=== PATIENT | male | born 1975 | race Two or more races ===

== ENCOUNTER 2016-08-16 08:16 | Emergency (ER) | payer SELFPAY ==
--- NOTE | 2016-08-16 09:52 | ER Document Report ---
HPI - HPI Patient complains to provider of: neck pain Onset: Yesterday Onset/Duration: Gradual Quality of pain: Achy Pain Level: 3 Context: Patient states he was jumping rope yesterday and started to develop neck tenderness. Patient denies any fall or specific injury. Patient denies any fever or headache. Patient denies any IV drug use. Associated Symptoms: Other - Neck pain Exacerbated by: Movement Relieved by: Denies Similar symptoms previously: No Recently seen / treated by doctor: No - ROS ROS below otherwise negative: Yes Systems Reviewed and Negative: Yes All other systems reviewed and negative - CONSTITUTIONAL Constitutional: DENIES: Fever - NEURO Neurology: DENIES: Headache, Weakness - CARDIOVASCULAR Cardiovascular: DENIES: Chest pain - GASTROINTESTINAL Gastrointestinal: DENIES: Nausea, Patient vomiting - MUSCULOSKELETAL Musculoskeletal: REPORTS: Neck Pain - DERM Skin Color: Normal Skin Problems: None Past Medical History - General Information source: Patient - Social History Smoking Status: Unknown if Ever Smoked Chew tobacco use (# tins/day): No Frequency of alcohol use: None Drug Abuse: None Occupation: [employer] Lives with: Family Family History: Reviewed & Not Pertinent Patient has suicidal ideation: No Patient has homicidal ideation: No - Medical History Medical History: Negative Renal/ Medical History: Denies: Hx Peritoneal Dialysis Past Surgical History: Reports: Hx Appendectomy Vertical Provider Document - CONSTITUTIONAL Agree With Documented VS: Yes Exam Limitations: No Limitations General Appearance: WD/WN, No Apparent Distress - INFECTION CONTROL TRAVEL OUTSIDE OF THE [place] IN LAST 30 DAYS: No - HEENT HEENT: Atraumatic, Normocephalic - NECK Neck: Normal Inspection, Supple. negative: Lymphadenopathy-Left, Lymphadenopathy-Right Notes: No meningismus - RESPIRATORY Respiratory: Breath Sounds Normal, No Respiratory Distress O2 Sat by Pulse Oximetry: 99 - CARDIOVASCULAR Cardiovascular: Regular Rate, Regular Rhythm - BACK Back: Abnormal Inspection - Bilateral trapezius muscle tenderness with spasm. negative: CVA Tenderness-Right, CVA Tenderness-Left - MUSCULOSKELETAL/EXTREMETIES Musculoskeletal/Extremeties: [place] - NEURO Level of Consciousness: Awake, Alert, Appropriate Motor/Sensory: No Motor Deficit - DERM Integumentary: Warm, Dry, No Rash Course - Vital Signs Vital signs: Temp Pulse Resp BP Pulse Ox 97.4 F 74 20 129/80 H 99 08/16/16 08:21 08/16/16 08:21 08/16/16 08:21 08/16/16 08:21 08/16/16 08:21 Discharge - Discharge Clinical Impression: Trapezius muscle strain Qualifiers: Encounter type: initial encounter Laterality: unspecified laterality Qualified Code(s): S46.819A - Strain of other muscles, fascia and tendons at shoulder and upper arm level, unspecified arm, initial encounter Condition: Stable Disposition: HOME, SELF-CARE Instructions: Muscle Relaxers ([facility]), Muscle Strain ([facility]), Oral Narcotic Medication ([facility]), Warm Packs ([facility]) Additional Instructions: Return immediately for any new or worsening symptoms Followup with your primary care provider, call tomorrow to make a followup appointment Prescriptions: Cyclobenzaprine HCl [Flexeril 10 Mg Tablet] 10 mg PO TID #15 tablet Hydrocodone/Acetaminophen [[place] 5-325 Tablet] 1 each PO Q4 PRN #15 tablet PRN Reason: Forms: Return to Work Referrals: [facility] [Provider Group] - Follow up as needed
[2016-08-16 09:57] VITALS: BP 130/86
== END 2016-08-16 09:57 | disposition home or self-care (01) ==
LOC: ER 08:16
DX: S46.819A Strain of other muscles, fascia and tendons at shoulder and upper arm level, unspecified arm, initial encounter (principal); M54.2 Cervicalgia; X58.XXXA Exposure to other specified factors, initial encounter; Y93.56 Activity, jumping rope
CPT/HCPCS: 99283

== ENCOUNTER 2019-12-31 18:56 | Emergency (ER) | payer SELFPAY ==
--- NOTE | 2019-12-31 21:35 | ER Document Report ---
ED General - General Chief Complaint: Fever Stated Complaint: COUGH/CONGESTION/FEVER/DIARRHEA/MUSCLE PAIN Time Seen by Provider: 12/31/19 20:40 Mode of Arrival: Ambulatory Information source: Patient Notes: Patient is an otherwise healthy 44-year-old male presenting to the emergency department with multiple complaints today. Patient has had 1 week of fever, chills, cough, diarrhea, headache, body aches, lack of appetite and occasional shortness of breath. He states he was tested for COVID-19 1 week ago at [facility] in [place] but has not received his test results yet. He has no known exposure to COVID-19. He denies any medical problems and does not take any medications daily. TRAVEL OUTSIDE OF THE [place] IN LAST 30 DAYS: No - Related Data Allergies/Adverse Reactions: No Known Allergies Allergy (Verified 08/16/16 08:20) Home Medications: Ibuprofen Past Medical History - General Information source: Patient - Social History Smoking Status: Never Smoker Frequency of alcohol use: None Drug Abuse: None Family History: Reviewed & Not Pertinent - Medical History Medical History: Negative Renal/ Medical History: Denies: Hx Peritoneal Dialysis Past Surgical History: Reports: Hx Appendectomy - Immunizations Immunizations up to date: Yes Review of Systems - Review of Systems Constitutional: Chills, Fever EENT: No symptoms reported Cardiovascular: No symptoms reported Respiratory: Cough, Short of breath Gastrointestinal: Diarrhea Genitourinary: No symptoms reported Male Genitourinary: No symptoms reported Musculoskeletal: Other - ALL OVER BODY ACHES Skin: No symptoms reported Hematologic/Lymphatic: No symptoms reported Neurological/Psychological: No symptoms reported Physical Exam - Vital signs Vitals: Temp Pulse Resp BP Pulse Ox 100.2 F 107 H 20 137/87 H 94 12/31/19 19:58 12/31/19 19:58 12/31/19 19:58 12/31/19 19:58 12/31/19 19:58 - Notes Notes: PHYSICAL EXAMINATION: GENERAL: Well-appearing, well-nourished and in no acute distress. HEAD: Atraumatic, normocephalic. EYES: Pupils equal round and reactive to light, extraocular movements intact, sclera anicteric, conjunctiva are normal. ENT: Nares patent, oropharynx clear without exudates. Moist mucous membranes. NECK: Normal range of motion, supple without lymphadenopathy LUNGS: Breath sounds clear to auscultation bilaterally and equal. No wheezes rales or rhonchi. HEART: Regular rate and rhythm without murmurs ABDOMEN: Soft, nontender, nondistended abdomen. No guarding, no rebound. No masses appreciated. Musculoskeletal: Normal range of motion, no pitting or edema. No cyanosis. NEUROLOGICAL: Cranial nerves grossly intact. Normal speech, normal gait. Normal sensory, motor exams PSYCH: Normal mood, normal affect. SKIN: Warm, Dry, normal turgor, no rashes or lesions noted. Course - Re-evaluation Re-evalutation: 12/31/19 21:34 Patient appears well, nontoxic. Patient is mildly tachycardic with a heart rate of 107. He is febrile at 100.2. His initial room air O2 sat was 94%. The nursing staff has placed him on 2 L of nasal cannula oxygen and his oxygen saturations remain between 90-94. He has no respiratory history. He actually looks well and is not endorse any shortness of breath at this time. Will initiate his work-up. He is currently pending COVID-19 test that was done at another facility over a week ago. Patient has not had any success in getting his results we will repeat COVID-19 test tonight. All of patient's test results are reassuring. Patient did spike a fever near the time of discharge. Patient reports he is not feeling better after having the IV fluids. I believe this is likely because he has now spiked a fever of 102. Plan to reevaluate patient after administration of IV Toradol and oral acetaminophen. Patient was held in the emergency department for additional medications, now that patient's fever is under control patient now feels comfortable being discharged home. He states that he lives with his and daughter and feels comfortable with them caring for him. Oxygen saturations at time of discharge are 95% on room air. Patient is not tachypneic, hypoxic or tachycardic. He is concerned about going home but states that he will return if he has worsening respiratory status. - Vital Signs Vital signs: Temp Pulse Resp BP Pulse Ox 99.1 F 92 18 103/66 91 L 01/01/20 04:42 01/01/20 04:42 01/01/20 04:42 01/01/20 04:42 07/15/20 04:42 - Laboratory Result Diagrams: 12/31/19 22:14 12/31/19 22:14 Laboratory results interpreted by me: 12/31/19 12/31/19 12/31/19 22:14 22:14 22:14 RBC 5.97 H Hgb 17.3 H RDW 14.3 H Lymph % (Auto) 11.8 L Seg Neutrophils % 82.6 H Sodium 134.9 L Chloride 96 L Glucose 165 H AST 92 H ALT 70 H Urine Protein >=500 H Urine Glucose (UA) 50 H Urine Ketones 20 H Urine Blood SMALL H Urine Urobilinogen 2.0 H Discharge - Discharge Clinical Impression: Suspected COVID-19 virus infection Fever Qualifiers: Fever type: unspecified Qualified Code(s): R50.9 - Fever, unspecified Condition: Stable Disposition: HOME, SELF-CARE Instructions: COVID-19 Guidance for Persons Under Investigation Additional Instructions: As discussed your COVID-19 testing is pending. The rest of your work-up today was reassuring. Please take Tylenol or ibuprofen for fever or body aches. Drink plenty fluids. Rest. Self quarantine until you have received the results of your COVID-19 testing. Please return to the emergency department with worsening symptoms or severe shortness of breath. Forms: Return to Work
--- NOTE | 2019-12-31 22:18 | RADIOLOGY REPORT (SQ) ---
EXAM DESCRIPTION: X-RAY CHEST- One View CLINICAL HISTORY: Fever, cough, hypoxia COMPARISON: None available TECHNIQUE: Single view of the chest. FINDINGS: There patchy opacities overlying the left midlung zone, and to a lesser extent the bilateral lower lung zones. The pulmonary vascularity is normal. The cardiomediastinal silhouette is normal in size. No suspicious lytic or blastic osseous lesions are identified. IMPRESSION: Multifocal patchy opacities are nonspecific in nature. Findings are nonspecific but may represent multifocal infectious process. Clinical correlation is advised with attention on follow-up.
[2019-12-31] MEDS: NORMAL SALINE 1000 ML 1,000 ML IV PRN (22:21)
[2019-12-31 22:33] LABS: ABSOLUTE LYMPHOCYTES (AUTO) 0.9 10^3/uL (0.5-4.7); ABSOLUTE MONOCYTES (AUTO) 0.4 10^3/uL (0.1-1.4); ABSOLUTE NEUT (AUTO) 6.4 10^3/uL (1.7-8.2); BASOPHILS % (AUTO) 0.2 % (0-2); HEMATOCRIT 50.6 % (37.9-51.0); HEMOGLOBIN 17.3 g/dL (13.5-17.0); LYMPHOCYTES % (AUTO) 11.8 % (13-45); MEAN CORPUSCULAR HGB CONC 34.2 g/dL (32.0-36.0); MEAN CORPUSCULAR VOLUME 85 fl (80-97); MONOCYTES % (AUTO) 5.4 % (3-13); PLATELET COUNT 267 10^3/uL (150-450); RED BLOOD COUNT 5.97 10^6/uL (4.35-5.55); RED CELL DISTRIBUTION WIDTH 14.3 % (11.5-14.0); SEGMENTED NEUTROPHILS % (AUTO) 82.6 % (42-78); TOTAL CELLS COUNTED % (AUTO) 100 %; WHITE BLOOD COUNT 7.7 10^3/uL (4.0-10.5)
[2019-12-31 22:39] LABS: APPEARANCE,URINE CLEAR; BILIRUBIN,URINE NEGATIVE (NEGATIVE); COLOR,URINE AMBER; GLUCOSE, URINE 50 mg/dL (NEGATIVE); KETONES,URINE 20 mg/dL (NEGATIVE); PROTEIN,URINE >=500 mg/dL (NEGATIVE); URINE SPECIFIC GRAVITY 1.024
[2019-12-31 22:50] LABS: ALBUMIN 4.3 g/dL (3.5-5.0); ALKALINE PHOSPHATASE 108 U/L (38-126); ANION GAP 9 (5-19); ASPARTATE AMINO TRANSFERASE 92 U/L (17-59); BILIRUBIN,DIRECT 0.2 mg/dL (0.0-0.4); BILIRUBIN,TOTAL 0.6 mg/dL (0.2-1.3); BLOOD UREA NITROGEN 10 mg/dL (7-20); CALCIUM 9.1 mg/dL (8.4-10.2); CARBON DIOXIDE 30 mmol/L (22-30); CHLORIDE 96 mmol/L (98-107); GLUCOSE 165 mg/dL (75-110); POTASSIUM 4.5 mmol/L (3.6-5.0); TOTAL PROTEIN 7.4 g/dL (6.3-8.2)
[2020-01-01] MEDS ORDERED: KETOROLAC TROMETHAMINE INJ/PF 30 MG/1 ML SDV IV ONE (02:20)
[2020-01-01] MEDS ORDERED: ACETAMINOPHEN 325 MG TABLET PO ONE (02:20)
[2020-01-01] MEDS: NORMAL SALINE 1000 ML 1,000 ML IV PRN (03:37)
[2020-01-01 04:43] VITALS: BP 103/66
== END 2020-01-01 05:53 | disposition home or self-care (01) ==
LOC: ER 18:56
DX: R50.9 Fever, unspecified (principal); R05 Cough; R19.7 Diarrhea, unspecified; R51 Headache; R63.0 Anorexia; R06.02 Shortness of breath; M79.10 Myalgia, unspecified site; Z79.1 Long term (current) use of non-steroidal anti-inflammatories (NSAID); Z20.828 Contact with and (suspected) exposure to other viral communicable diseases
CPT/HCPCS: 99283; 96361; 96374; 36415; 85025; 87635; 80053; 81001; 71045; J1885; J7030 ×2; C9803

== ENCOUNTER 2020-01-01 15:53 | Inpatient (IN) | payer SELFPAY ==
[2020-01-01 17:35] LABS: ABSOLUTE LYMPHOCYTES (AUTO) 0.5 10^3/uL (0.5-4.7); ABSOLUTE MONOCYTES (AUTO) 0.3 10^3/uL (0.1-1.4); ABSOLUTE NEUT (AUTO) 6.9 10^3/uL (1.7-8.2); BASOPHILS % (AUTO) 0.1 % (0-2); HEMATOCRIT 44.8 % (37.9-51.0); HEMOGLOBIN 15.4 g/dL (13.5-17.0); LYMPHOCYTES % (AUTO) 6.9 % (13-45); MEAN CORPUSCULAR HEMOGLOBIN 29.3 pg (27.0-33.4); MEAN CORPUSCULAR HGB CONC 34.5 g/dL (32.0-36.0); MEAN CORPUSCULAR VOLUME 85 fl (80-97); MONOCYTES % (AUTO) 4.3 % (3-13); PLATELET COUNT 275 10^3/uL (150-450); RED BLOOD COUNT 5.27 10^6/uL (4.35-5.55); RED CELL DISTRIBUTION WIDTH 14.2 % (11.5-14.0); SEGMENTED NEUTROPHILS % (AUTO) 88.7 % (42-78); TOTAL CELLS COUNTED % (AUTO) 100 %; WHITE BLOOD COUNT 7.8 10^3/uL (4.0-10.5)
[2020-01-01 17:40] LABS: VENOUS BLOOD BASE EXCESS 3.5 mmol/L; VENOUS BLOOD HCO3 27.3 mmol/L (20-32); VENOUS BLOOD PCO2 38.8 mmHg (35-63); VENOUS BLOOD PH 7.47 (7.30-7.42)
[2020-01-01] MEDS ORDERED: ACETAMINOPHEN 325 MG TABLET PO ONE (17:45)
[2020-01-01 17:48] LABS: ALBUMIN 3.5 g/dL (3.5-5.0); ALKALINE PHOSPHATASE 96 U/L (38-126); ANION GAP 7 (5-19); ASPARTATE AMINO TRANSFERASE 98 U/L (17-59); BILIRUBIN,DIRECT 0.2 mg/dL (0.0-0.4); BILIRUBIN,TOTAL 0.5 mg/dL (0.2-1.3); BLOOD UREA NITROGEN 7 mg/dL (7-20); CARBON DIOXIDE 26 mmol/L (22-30); CHLORIDE 98 mmol/L (98-107); GLUCOSE 217 mg/dL (75-110); TOTAL PROTEIN 6.2 g/dL (6.3-8.2)
--- NOTE | 2020-01-01 17:55 | RADIOLOGY REPORT (SQ) ---
EXAM DESCRIPTION: CHEST SINGLE VIEW IMAGES COMPLETED DATE/TIME: 01/01/2020 5:42 pm REASON FOR STUDY: bed 6 covid + COMPARISON: 12/31/2019 EXAM PARAMETERS: NUMBER OF VIEWS: One view. TECHNIQUE: Single frontal radiographic view of the chest acquired. RADIATION DOSE: NA LIMITATIONS: None. FINDINGS: LUNGS AND PLEURA: Increased opacification in the left lung generally. Increased right per ihilar opacification. MEDIASTINUM AND HILAR STRUCTURES: No masses. Contour normal. HEART AND VASCULAR STRUCTURES: Heart normal in size. Normal vasculature. BONES: No acute findings. HARDWARE: None in the chest. OTHER: No other significant finding. IMPRESSION: Increasing pneumonia is consistent with the the stated history. TECHNICAL DOCUMENTATION: JOB ID: [id number] 2010 [employer]- All Rights Reserved Reading location - IP/workstation name: [email or web address]
--- NOTE | 2020-01-01 17:58 | ER Document Report ---
ED General - General Chief Complaint: Shortness Of Breath Stated Complaint: SHORT OF BREATH,COUGH Time Seen by Provider: 01/01/20 17:44 Mode of Arrival: Ambulatory Information source: Patient TRAVEL OUTSIDE OF THE [place] IN LAST 30 DAYS: No - HPI Notes: Patient presents complaint of shortness of breath. He states that he found out that his COVID test was positive this morning. He states his shortness of breath is worse with exertion better with rest. It is constant. It is moderate to severe. It obviously does not radiate. He is also had some fevers body aches and chills. - Related Data Allergies/Adverse Reactions: No Known Allergies Allergy (Verified 01/01/20 17:27) Past Medical History - General Information source: Patient - Social History Smoking Status: Former Smoker Frequency of alcohol use: None Drug Abuse: None Family History: Reviewed & Not Pertinent Patient has homicidal ideation: No Renal/ Medical History: Denies: Hx Peritoneal Dialysis Past Surgical History: Reports: Hx Appendectomy - Immunizations Immunizations up to date: Yes Review of Systems - Review of Systems Constitutional: Chills, Fever, Malaise Cardiovascular: Chest pain. denies: Palpitations Respiratory: Cough, Short of breath -: Yes All other systems reviewed and negative Physical Exam - Vital signs Vitals: Temp Pulse Resp BP Pulse Ox 101.6 F H 107 H 20 123/78 86 L 01/01/20 16:02 01/01/20 16:02 01/01/20 16:02 01/01/20 16:02 01/01/20 16:02 Interpretation: Tachycardic, Tachypneic, Febrile - General General appearance: Appears well, Alert - HEENT Head: Normocephalic, Atraumatic Eyes: Normal - Respiratory Respiratory status: No respiratory distress Breath sounds: Normal - Cardiovascular Rhythm: Regular - Abdominal Inspection: Normal Distension: No distension - Back Back: Normal - Extremities General upper extremity: Normal inspection, Nontender, Normal color, Normal ROM General lower extremity: Normal inspection, Nontender, Normal color, Normal ROM. No: Moses's sign - Neurological Neuro grossly intact: Yes Cognition: Normal Orientation: AAOx4 [place] Coma Scale Eye Opening: Spontaneous [place] Coma Scale Verbal: Oriented [place] Coma Scale Motor: Obeys Commands [place] Coma Scale Total: 15 Speech: Normal - Psychological Associated symptoms: Normal affect, Normal mood - Skin Skin Moisture: Dry Skin Color: Normal Course - Re-evaluation Re-evalutation: 01/01/20 17:56 Patient has a known positive COVID test. He is febrile. He has hypoxic. His x-ray shows changes consistent with viral pneumonia. Patient is currently on 6 L nasal cannula. He will be admitted to the hospital for further care. - Vital Signs Vital signs: Temp Pulse Resp BP Pulse Ox 103.2 F H 100 25 H 140/78 H 92 01/01/20 17:30 01/01/20 17:30 01/01/20 17:30 01/01/20 17:30 01/01/20 17:30 - Laboratory Result Diagrams: 01/01/20 17:00 01/01/20 17:00 Laboratory results interpreted by me: 01/01/20 01/01/20 17:00 17:00 RDW 14.2 H Lymph % (Auto) 6.9 L Seg Neutrophils % 88.7 H VBG pH 7.47 H - Diagnostic Test Radiology reviewed: Image reviewed, Reports reviewed Critical Care Note - Critical Care Note Total time excluding time spent on procedures (mins): 40 Comments: Approximately 40 minutes of critical care time were spent on this patient. This included multiple reassessments. It included reviewing laboratories and images. It included talking to multiple consultants. Discharge - Discharge Clinical Impression: Pneumonia due to COVID-19 virus Condition: Serious Disposition: ADMITTED INPATIENT Admitting Provider: Vic (Hospitalist) Unit Admitted: [facility]
[2020-01-01] MEDS ORDERED: DEXTROSE 5%-NORMAL SALINE 1,000 ML IV PRN (18:14)
[2020-01-01] MEDS ORDERED: ACETAMINOPHEN 325 MG TABLET PO PRN (18:14)
[2020-01-01] MEDS ORDERED: MAG HYDROX/AL HYDROX/SIMETH SUSP 30 ML UDCUP PO PRN (18:14)
[2020-01-01] MEDS ORDERED: ONDANSETRON HCL INJ/PF 4 MG/2 ML SDV IV PRN (18:14)
[2020-01-01] MEDS ORDERED: GUAIFENESIN SYRP 200 MG/10 ML UDC PO PRN (18:20)
[2020-01-01] MEDS ORDERED: AZITHROMYCIN INJ 500 MG VIAL IV ONE (18:27)
[2020-01-01] MEDS ORDERED: NORMAL SALINE 1000 ML 1,000 ML IV PRN (18:28)
[2020-01-01] MEDS ORDERED: KETOROLAC TROMETHAMINE INJ/PF 30 MG/1 ML SDV IV PRN (18:31)
[2020-01-01] MEDS ORDERED: NORMAL SALINE 1000 ML 1,000 ML with POTASSIUM CHLORIDE 20 MEQ IV PRN ×2 (18:33)
--- NOTE | 2020-01-01 18:46 | PDOC H&P ---
History of Present Illness Patient complains of: Cough, shortness of breath History of Present Illness: CARINA MAJOR is a 44 year old male with no significant past medical history who presents to the hospital evaluation of nonproductive cough and shortness of breath. Patient states that his symptoms have persisted for the past several days now. His worsening dyspnea today. Also suspecting high fevers at home. Admits to chills. States that he has been outpatient COVID-19 test at [place] which was came back positive. He was also seen in tested in our ER yesterday. Result pending. In the ER yesterday patient was not hypoxic. However today patient was reported to have desatted to 80% on room air in the ER. Currently on nasal cannula. Admits to diarrhea. Admits to loss of appetite as well. Denies any vomiting. Past Medical History Medical History: None Infectious History Note: Appendicitis Past Surgical History Past Surgical History: Reports: Appendectomy Social History Information Source: Patient Lives with: Spouse/Significant other Smoking Status: Never Smoker Frequency of Alcohol Use: None Hx Recreational Drug Use: No Hx Prescription Drug Abuse: No - Advance Directive Resuscitation Status: Full Code Family History Family History: DM, Hypertension Parental Family History Reviewed: Yes Children Family History Reviewed: NA Sibling(s) Family History Reviewed.: Yes Medication/Allergy Home Medications: Cyclobenzaprine HCl [Flexeril 10 Mg Tablet] 10 mg PO TID #15 tablet 08/16/16 Hydrocodone/Acetaminophen [[place] 5-325 Tablet] 1 each PO Q4 PRN #15 tablet 08/16/16 Allergies/Adverse Reactions: No Known Allergies Allergy (Verified 01/01/20 17:27) Review of Systems Constitutional: PRESENT: chills, fatigue, fever(s) Eyes: ABSENT: visual disturbances Ears: ABSENT: hearing changes Nose, Mouth, and Throat: ABSENT: headache(s) Cardiovascular: ABSENT: chest pain, edema, orthropnea Respiratory: PRESENT: cough, dyspnea. ABSENT: sputum Gastrointestinal: PRESENT: diarrhea, nausea. ABSENT: abdominal pain, vomiting Genitourinary: ABSENT: dysuria Musculoskeletal: PRESENT: other - Generalized body aches Integumentary: PRESENT: diaphoresis Neurological: PRESENT: dizziness. ABSENT: confusion Endocrine: ABSENT: polyuria Hematologic/Lymphatic: ABSENT: easy bleeding Physical Exam Vital Signs: Temp Pulse Resp BP Pulse Ox 103.2 F H 100 26 H 128/75 H 93 01/01/20 17:30 01/01/20 17:30 01/01/20 18:01 01/01/20 18:01 01/01/20 18:01 Intake & Output 12/31/19 01/01/20 01/02/20 06:59 06:59 06:59 Weight 101 kg General appearance: PRESENT: no acute distress, cooperative Mouth exam: PRESENT: neck supple Neck exam: ABSENT: JVD Respiratory exam: PRESENT: crackles - Bilateral lung wright, symmetrical, unlabored. ABSENT: accessory muscle use, retraction, tachypnea, wheezes Cardiovascular exam: PRESENT: RRR, +S1, +S2. ABSENT: tachycardia GI/Abdominal exam: PRESENT: soft. ABSENT: distended, firm, guarding, rebound, rigid, tenderness Extremities exam: ABSENT: pedal edema Neurological exam: PRESENT: alert, awake, oriented to person, oriented to place, oriented to time, oriented to situation Psychiatric exam: ABSENT: agitated, anxious Focused psych exam: ABSENT: pressured speech Skin exam: ABSENT: jaundice Results Laboratory Results: 01/01/20 17:00 01/01/20 17:00 01/01/20 01/01/20 01/01/20 17:00 17:00 17:00 WBC 7.8 RBC 5.27 Hgb 15.4 Hct 44.8 MCV 85 MCH 29.3 MCHC 34.5 RDW 14.2 H Plt Count 275 Seg Neutrophils % 88.7 H VBG pH VBG pCO2 VBG HCO3 VBG Base Excess Sodium 131.0 L Potassium 4.0 Chloride 98 Carbon Dioxide 26 Anion Gap 7 BUN 7 Creatinine 0.76 Est GFR ( Amer) > 60 Glucose 217 H Lactic Acid 1.3 Calcium 8.0 L Total Bilirubin 0.5 AST 98 H Alkaline Phosphatase 96 Total Protein 6.2 L Albumin 3.5 01/01/20 17:00 WBC RBC Hgb Hct MCV MCH MCHC RDW Plt Count Seg Neutrophils % VBG pH 7.47 H VBG pCO2 38.8 VBG HCO3 27.3 VBG Base Excess 3.5 Sodium Potassium Chloride Carbon Dioxide Anion Gap BUN Creatinine Est GFR ( Amer) Glucose Lactic Acid Calcium Total Bilirubin AST Alkaline Phosphatase Total Protein Albumin Impressions: Chest X-Ray 01/01/20 00:00 IMPRESSION: Increasing pneumonia is consistent with the the stated history. Assessment and Plan - Diagnosis (1) Pneumonia due to COVID-19 virus Is this a current diagnosis for this admission?: Yes Plan: Chest x-ray shows bilateral pulmonary infiltrates consistent with typical COVID pneumonia. Patient also reports testing positive as outpatient which he just got the results of today. He was tested in the ER as well yesterday and the results are pending. We will start patient on vitamin C, vitamin D, zinc supplements. Guaifenesin, albuterol inhaler. Start azithromycin. Isolation in the COVID unit. Blood cultures were obtained. Antiemetics provided. (2) Acute hypoxemic respiratory failure due to COVID-19 Is this a current diagnosis for this admission?: Yes Plan: Patient desatted to 80% on room air. Currently requiring nasal cannula. Goal SPO2 of 90 to 94%. Will increase nasal cannula as needed to achieve goal. If nasal cannula is insufficient, will place patient on Ventimask. We will start on IV dexamethasone now. Monitor on continuous pulse oximetry. IMCU level care. (3) Diarrhea Qualifiers: Diarrhea type: infectious Qualified Code(s): A09 - Infectious gastroenteritis and colitis, unspecified Is this a current diagnosis for this admission?: Yes Plan: Likely secondary to viral gastroenteritis from COVID-19. Will monitor closely. Did have about 5 bouts of diarrhea. Experiencing some dizziness likely due to dehydration. Will provide with IV fluids. If frequent diarrhea persists, will rule out C. difficile infection and start Imodium. Antiemetics provided for nausea. (4) Hyponatremia Is this a current diagnosis for this admission?: Yes Plan: Likely secondary to hypovolemia from dehydration from diarrhea. Administer normal saline. Check BMP in the morning. (5) Hyperglycemia Is this a current diagnosis for this admission?: Yes Plan: Blood sugars in the 200s. Denies history of diabetes. Will check hemoglobin A1c in the morning. (6) Transaminitis Is this a current diagnosis for this admission?: Yes Plan: Likely secondary to prior infection. Will monitor CMP. - Time Time Spent with patient: 25-34 minutes
[2020-01-01] MEDS ORDERED: DEXAMETHASONE SOD PHOSPHATE INJ 4 MG/1 ML VIAL IV ONE (19:30)
[2020-01-01] MEDS ORDERED: AZITHROMYCIN 500 MG in DEXTROSE 5%-WATER 250 ML IV ONE (19:30)
[2020-01-01] MEDS: ASCORBIC ACID 500 MG TABLET PO SCH (19:37)
[2020-01-01] MEDS: ENOXAPARIN SODIUM INJ 40 MG/0.4 ML DISP.SYRIN SUBCUT SCH (22:46)
[2020-01-01] MEDS: GUAIFENESIN 600 MG TABLET.SA PO SCH (22:46)
[2020-01-02] MEDS ORDERED: ALBUTEROL SULFATE HFA (90 MCG/PUFF) 8 GM MDI IH SCH
[2020-01-02] MEDS: ALBUTEROL SULFATE HFA (90 MCG/PUFF) 200 PUFF/8.5 GM MDI IH SCH ×4 (01:07→18:22)
[2020-01-02] MEDS: POTASSI CL 20 MEQ/NS 1L 1000 ML IV PRN (01:50)
[2020-01-02] MEDS: DEXAMETHASONE SOD PHOSPHATE INJ 4 MG/1 ML VIAL IV SCH ×3 (01:51→23:08)
[2020-01-02 05:11] LABS: ABSOLUTE LYMPHOCYTES (AUTO) 0.7 10^3/uL (0.5-4.7); ABSOLUTE MONOCYTES (AUTO) 0.3 10^3/uL (0.1-1.4); ABSOLUTE NEUT (AUTO) 8.7 10^3/uL (1.7-8.2); BASOPHILS % (AUTO) 0.1 % (0-2); HEMATOCRIT 45.7 % (37.9-51.0); HEMOGLOBIN 15.8 g/dL (13.5-17.0); LYMPHOCYTES % (AUTO) 7.3 % (13-45); MEAN CORPUSCULAR HEMOGLOBIN 29.3 pg (27.0-33.4); MEAN CORPUSCULAR HGB CONC 34.5 g/dL (32.0-36.0); MEAN CORPUSCULAR VOLUME 85 fl (80-97); MONOCYTES % (AUTO) 3.3 % (3-13); PLATELET COUNT 288 10^3/uL (150-450); RED BLOOD COUNT 5.37 10^6/uL (4.35-5.55); RED CELL DISTRIBUTION WIDTH 14.6 % (11.5-14.0); SEGMENTED NEUTROPHILS % (AUTO) 89.3 % (42-78); TOTAL CELLS COUNTED % (AUTO) 100 %; WHITE BLOOD COUNT 9.8 10^3/uL (4.0-10.5)
[2020-01-02 05:30] LABS: ALBUMIN 3.5 g/dL (3.5-5.0); ALKALINE PHOSPHATASE 100 U/L (38-126); ANION GAP 8 (5-19); ASPARTATE AMINO TRANSFERASE 99 U/L (17-59); BILIRUBIN,DIRECT 0.1 mg/dL (0.0-0.4); BILIRUBIN,TOTAL 0.6 mg/dL (0.2-1.3); BLOOD UREA NITROGEN 8 mg/dL (7-20); CALCIUM 8.2 mg/dL (8.4-10.2); CARBON DIOXIDE 27 mmol/L (22-30); CHLORIDE 100 mmol/L (98-107); GLUCOSE 209 mg/dL (75-110); PHOSPHORUS 2.3 mg/dL (2.5-4.5); POTASSIUM 4.4 mmol/L (3.6-5.0); TOTAL PROTEIN 6.6 g/dL (6.3-8.2)
[2020-01-02 05:51] LABS: C-REACTIVE PROTEIN 262.7 mg/L (<10.0)
[2020-01-02] MEDS ORDERED: DEXTROSE 50%-WATER 25 GM/50 ML DISP.SYRIN IV PRN ×2 (07:34)
[2020-01-02] MEDS ORDERED: DEXTROSE 40% GEL 15 GM TUBE PO PRN ×2 (07:34)
[2020-01-02] MEDS ORDERED: GLUCAGON,HUMAN RECOMB 1 MG INJ IM PRN (07:34)
[2020-01-02] MEDS ORDERED: ENOXAPARIN SODIUM INJ 40 MG/0.4 ML DISP.SYRIN SUBCUT SCH (10:00)
[2020-01-02] MEDS: METFORMIN HCL 500 MG TABLET PO SCH ×2 (15:15→17:54)
[2020-01-02] MEDS: CHOLECALCIFEROL (D3) 1,000 UNIT (25 MCG) TABLET PO SCH (15:19)
[2020-01-02] MEDS: ZINC SULFATE 220 MG CAPSULE PO SCH (15:20)
[2020-01-02] MEDS: GUAIFENESIN 600 MG TABLET.SA PO SCH ×2 (15:22→23:08)
[2020-01-02] MEDS: ASCORBIC ACID 500 MG TABLET PO SCH ×2 (15:22→23:09)
[2020-01-02] MEDS: ENOXAPARIN SODIUM INJ 40 MG/0.4 ML DISP.SYRIN SUBCUT SCH ×2 (15:26→23:08)
[2020-01-02] MEDS: INSULIN LISPRO 100 UNIT/ML 3 ML VIAL SUBCUT SCH ×4 (15:31→23:15)
--- NOTE | 2020-01-02 17:37 | PDOC PROGRESS REPORT ---
Subjective Progress Note for:: 01/02/20 Subjective:: Patient became more short of breath today. When he ambulated he felt very heavy. He dropped independently on nasal cannula. Had to be placed on a simple facemask earlier today. Escalated therapy to high flow nasal cannula. Patient at the time of my encounter states that he does not feel as dyspneic but feels more dyspneic earlier. He denies any chest pain. Still having diarrhea. Not eating much of anything. Has loss of appetite. Reason For Visit: COVID PNA,HYPOXIA Physical Exam Vital Signs: Temp Pulse Resp BP Pulse Ox 101.5 F H 111 H 26 H 109/70 94 01/02/20 11:31 01/02/20 11:31 01/02/20 14:08 01/02/20 11:31 01/02/20 14:08 Pulse Oximeter Continuous Start: 01/01/20 18:33 Freq: RTQ4 Status: Active Protocol: Document 01/02/20 16:00 [facility] (Rec: 01/02/20 16:59 [facility] [id number]) Pulse Oximetry Assessment Oxygen Flow Rate (L/min) 40 Oxygen Delivery Method High Flow Nasal Cannula Fraction of Inspired Oxygen (FIO2) 90 Equipment Usage Equipment in Use Continuous SpO2 Machine # 2 Intake & Output 01/01/20 01/02/20 01/03/20 06:59 06:59 06:59 Intake Total 450 150 Output Total 675 250 Balance -225 -100 Weight 101 kg 101 kg General appearance: PRESENT: no acute distress, cooperative Neck exam: ABSENT: JVD Respiratory exam: PRESENT: crackles, symmetrical, unlabored. ABSENT: tachypnea, wheezes Cardiovascular exam: PRESENT: RRR, +S1, +S2. ABSENT: tachycardia GI/Abdominal exam: PRESENT: soft. ABSENT: rebound, rigid, tenderness Neurological exam: PRESENT: alert, awake, oriented to person, oriented to place, oriented to time, oriented to situation Results Laboratory Results: 01/02/20 04:35 01/02/20 04:35 01/01/20 01/01/20 01/01/20 17:00 17:00 17:00 WBC 7.8 RBC 5.27 Hgb 15.4 Hct 44.8 MCV 85 MCH 29.3 MCHC 34.5 RDW 14.2 H Plt Count 275 Seg Neutrophils % 88.7 H VBG pH VBG pCO2 VBG HCO3 VBG Base Excess Sodium 131.0 L Potassium 4.0 Chloride 98 Carbon Dioxide 26 Anion Gap 7 BUN 7 Creatinine 0.76 Est GFR ( Amer) > 60 Glucose 217 H Lactic Acid 1.3 Calcium 8.0 L Phosphorus Magnesium Total Bilirubin 0.5 AST 98 H Alkaline Phosphatase 96 C-Reactive Protein Total Protein 6.2 L Albumin 3.5 01/01/20 01/02/20 01/02/20 17:00 04:35 04:35 WBC 9.8 RBC 5.37 Hgb 15.8 Hct 45.7 MCV 85 MCH 29.3 MCHC 34.5 RDW 14.6 H Plt Count 288 Seg Neutrophils % 89.3 H VBG pH 7.47 H VBG pCO2 38.8 VBG HCO3 27.3 VBG Base Excess 3.5 Sodium 135.3 L Potassium 4.4 Chloride 100 Carbon Dioxide 27 Anion Gap 8 BUN 8 Creatinine 0.77 Est GFR ( Amer) > 60 Glucose 209 H Lactic Acid Calcium 8.2 L Phosphorus 2.3 L Magnesium 2.0 Total Bilirubin 0.6 AST 99 H Alkaline Phosphatase 100 C-Reactive Protein 262.7 H Total Protein 6.6 Albumin 3.5 Impressions: Chest X-Ray 01/01/20 00:00 IMPRESSION: Increasing pneumonia is consistent with the the stated history. Assessment and Plan - Diagnosis (1) Pneumonia due to COVID-19 virus Is this a current diagnosis for this admission?: Yes Plan: Chest x-ray shows bilateral pulmonary infiltrates consistent with typical COVID pneumonia. COVID-19 test from 12/31/2019 is positive. Continue vitamin C, vitamin D, zinc supplements. Guaifenesin, albuterol inhaler. Continue azithromycin day 2. Isolation in the COVID unit. Blood cultures were obtained. Antiemetics provided. I have organized for patient to get Remdesivir as patient meets qualification given his Severe COVID-19 infection. Pharmacy coordinating it with [facility] and hopefully will be delivered tomorrow. (2) Acute hypoxemic respiratory failure due to COVID-19 Is this a current diagnosis for this admission?: Yes Plan: Patient's hypoxia significantly progressed. At this point he is requiring high flow nasal cannula to keep his sats over 90%. We will wean FiO2 as tolerated. We will also have patient self prone. Check ABG in the morning. Continue dexamethasone IV. Hopefully, Remdesivir can be started tomorrow. (3) Diarrhea Qualifiers: Diarrhea type: infectious Qualified Code(s): A09 - Infectious gastroenteritis and colitis, unspecified Is this a current diagnosis for this admission?: Yes Plan: Likely secondary to viral gastroenteritis from COVID-19. Will monitor closely. Still having several bouts of diarrhea. Will check C. difficile as well and if negative will start on Imodium. IV fluid hydration to avoid dehydration. (4) New onset type 2 diabetes mellitus Is this a current diagnosis for this admission?: Yes Plan: Random blood sugar over 200 and hemoglobin A1c of 7.1. I will start patient on metformin. Accu-Cheks and sliding scale. Diabetes education. Dietitian consulted. (5) Hyponatremia Is this a current diagnosis for this admission?: Yes Plan: Likely secondary to hypovolemia from dehydration from diarrhea. Improved on BMP following IV fluids administration. (6) Transaminitis Is this a current diagnosis for this admission?: Yes Plan: Likely secondary to prior infection. Will monitor CMP. (7) DVT prophylaxis Is this a current diagnosis for this admission?: Yes Plan: Given high risk of VTE with COVID patient's on regular prophylactic dose, I have placed patient on half therapeutic dose of Lovenox. - Time Time Spent with patient: 15-24 minutes
[2020-01-02] MEDS ORDERED: AZITHROMYCIN INJ 500 MG VIAL IV SCH (18:00)
[2020-01-02] MEDS ORDERED: AZITHROMYCIN 250 MG in DEXTROSE 5%-WATER 250 ML IV SCH (18:00)
[2020-01-02] MEDS ORDERED: REMDESIVIR (EUA) 200 MG in NORMAL SALINE 250 ML IV ONE (22:00)
[2020-01-03] MEDS: AZITHROMYCIN 250 MG in DEXTROSE 5%-WATER 250 ML IV SCH (01:46)
[2020-01-03] MEDS: ALBUTEROL SULFATE HFA (90 MCG/PUFF) 200 PUFF/8.5 GM MDI IH SCH ×4 (01:47→17:20)
[2020-01-03 05:41] LABS: HEMATOCRIT 44.3 % (37.9-51.0); HEMOGLOBIN 15.1 g/dL (13.5-17.0); MEAN CORPUSCULAR VOLUME 85 fl (80-97); PLATELET COUNT 359 10^3/uL (150-450); RED CELL DISTRIBUTION WIDTH 14.8 % (11.5-14.0)
[2020-01-03] MEDS: DEXAMETHASONE SOD PHOSPHATE INJ 4 MG/1 ML VIAL IV SCH ×3 (05:43→21:45)
[2020-01-03 06:09] LABS: ABSOLUTE LYMPHOCYTES# (MANUAL) 0.3 10^3/uL (0.5-4.7); ABSOLUTE MONOCYTES # (MANUAL) 0.6 10^3/uL (0.1-1.4); ANISOCYTOSIS SLIGHT; BAND NEUTROPHILS % (MANUAL) 1 % (3-5); BASOPHILS % (MANUAL) 0 % (0-2); EOSINOPHILS % (MANUAL) 0 % (0-6); LYMPHOCYTES % (MANUAL) 2 % (13-45); MONOCYTES % (MANUAL) 4 % (3-13); PLATELET COMMENT ADEQUATE; SEGMENTED NEUTROPHILS % (MAN) 93 % (42-78); TOTAL CELLS COUNTED 100; TOXIC GRANULATION 1+; TOXIC VACUOLATION PRESENT
[2020-01-03 06:38] LABS: ALBUMIN 3.2 g/dL (3.5-5.0); ALKALINE PHOSPHATASE 93 U/L (38-126); ANION GAP 10 (5-19); ASPARTATE AMINO TRANSFERASE 93 U/L (17-59); BILIRUBIN,DIRECT 0.1 mg/dL (0.0-0.4); BILIRUBIN,TOTAL 0.5 mg/dL (0.2-1.3); BLOOD UREA NITROGEN 9 mg/dL (7-20); CALCIUM 8.1 mg/dL (8.4-10.2); CARBON DIOXIDE 26 mmol/L (22-30); CHLORIDE 99 mmol/L (98-107); GLUCOSE 223 mg/dL (75-110); PHOSPHORUS 2.5 mg/dL (2.5-4.5); POTASSIUM 4.3 mmol/L (3.6-5.0); TOTAL PROTEIN 6.2 g/dL (6.3-8.2)
[2020-01-03 06:53] LABS: ARTERIAL BLOOD BASE EXCESS -0.2 mmol/L; ARTERIAL BLOOD H2CO3 1.05 mmol/L (1.05-1.35); ARTERIAL BLOOD HCO3 23.3 mmol/L (20-24); ARTERIAL BLOOD O2 SATURATION 91.3 % (94-98); ARTERIAL BLOOD PH 7.44 (7.35-7.45); ARTERIAL BLOOD PO2 57.8 mmHg (80-100); ARTERIAL BLOOD TOTAL CO2 24.4 mmol/L (23-27)
[2020-01-03 06:54] LABS: ARTERIAL BLOOD FIO2 80%
[2020-01-03] MEDS: INSULIN LISPRO 100 UNIT/ML 3 ML VIAL SUBCUT SCH ×4 (09:20→21:44)
[2020-01-03] MEDS: ENOXAPARIN SODIUM INJ 40 MG/0.4 ML DISP.SYRIN SUBCUT SCH ×2 (09:22→21:42)
[2020-01-03] MEDS: ZINC SULFATE 220 MG CAPSULE PO SCH (09:23)
[2020-01-03] MEDS: CHOLECALCIFEROL (D3) 1,000 UNIT (25 MCG) TABLET PO SCH (09:23)
[2020-01-03] MEDS: ASCORBIC ACID 500 MG TABLET PO SCH ×2 (09:23→21:43)
[2020-01-03] MEDS: METFORMIN HCL 500 MG TABLET PO SCH ×2 (09:23→17:20)
[2020-01-03] MEDS: GUAIFENESIN 600 MG TABLET.SA PO SCH ×2 (09:23→21:44)
[2020-01-03] MEDS: POTASSI CL 20 MEQ/NS 1L 1000 ML IV PRN ×2 (11:08→19:42)
--- NOTE | 2020-01-03 13:17 | PDOC PROGRESS REPORT ---
Subjective Progress Note for:: 01/03/20 Subjective:: Patient still short of breath. He gets short of breath when he moves around. Did have a tough time with his breathing this morning but stable when he is at rest. Still having some coughing fits. Had episode of diarrhea earlier. Denies any nausea or vomiting. Continue to encourage patient to eat. He is currently on a high flow nasal cannula. He was unable to tolerate self proning earlier this morning. Reason For Visit: COVID PNA,HYPOXIA Physical Exam Vital Signs: Temp Pulse Resp BP Pulse Ox 98.3 F 92 28 H 135/83 H 91 L 01/03/20 11:18 01/03/20 11:18 01/03/20 11:18 01/03/20 11:18 01/03/20 11:18 Pulse Oximeter Continuous Start: 01/01/20 18:33 Freq: RTQ4 Status: Active Protocol: Document 01/03/20 07:40 [facility] (Rec: 01/03/20 10:51 [facility] [email or web address]) Pulse Oximetry Assessment Oxygen Saturation (92-100) 91 Oxygen Flow Rate (L/min) 50 Oxygen Delivery Method High Flow Nasal Cannula Fraction of Inspired Oxygen (FIO2) 100 Equipment Usage Equipment in Use Continuous SpO2 Machine # 2 Intake & Output 01/02/20 01/03/20 01/04/20 06:59 06:59 06:59 Intake Total 450 1900 120 Output Total 675 775 275 Balance -225 1125 -155 Weight 101 kg 101 kg General appearance: PRESENT: no acute distress, cooperative Mouth exam: PRESENT: neck supple Neck exam: ABSENT: JVD Respiratory exam: PRESENT: symmetrical, unlabored. ABSENT: accessory muscle use, retraction, tachypnea Cardiovascular exam: PRESENT: tachycardia GI/Abdominal exam: PRESENT: soft. ABSENT: rebound, rigid, tenderness Extremities exam: ABSENT: pedal edema Neurological exam: PRESENT: alert, awake, oriented to person, oriented to place, oriented to time, oriented to situation Psychiatric exam: ABSENT: agitated, anxious Focused psych exam: ABSENT: pressured speech Skin exam: ABSENT: jaundice Results Laboratory Results: 01/03/20 04:36 01/03/20 04:36 01/03/20 01/03/20 01/03/20 04:36 04:36 06:25 WBC 14.0 H RBC 5.20 Hgb 15.1 Hct 44.3 MCV 85 MCH 29.0 MCHC 34.0 RDW 14.8 H Plt Count 359 Seg Neutrophils % Not Reportable Carbonic Acid 1.05 HCO3/H2CO3 Ratio 22:1 ABG pH 7.44 ABG pCO2 35.0 ABG pO2 57.8 L ABG HCO3 23.3 ABG O2 Saturation 91.3 L ABG Base Excess -0.2 FiO2 80% Sodium 135.2 L Potassium 4.3 Chloride 99 Carbon Dioxide 26 Anion Gap 10 BUN 9 Creatinine 0.74 Est GFR ( Amer) > 60 Glucose 223 H Calcium 8.1 L Phosphorus 2.5 Magnesium 2.0 Total Bilirubin 0.5 AST 93 H Alkaline Phosphatase 93 Total Protein 6.2 L Albumin 3.2 L Impressions: Chest X-Ray 01/01/20 00:00 IMPRESSION: Increasing pneumonia is consistent with the the stated history. Assessment and Plan - Diagnosis (1) Pneumonia due to COVID-19 virus Is this a current diagnosis for this admission?: Yes Plan: Chest x-ray shows bilateral pulmonary infiltrates consistent with typical COVID pneumonia. COVID-19 test from 12/31/2019 is positive. Continue vitamin C, vitamin D, zinc supplements. Guaifenesin, albuterol inhaler. Continue azithromycin day 3/5. Started on Remdesivir day 2/5 Dexamethasone day 08/26 Blood cultures growing what appears to be a contaminant. Repeat blood cultures.. Antiemetics provided. (2) Acute hypoxemic respiratory failure due to COVID-19 Is this a current diagnosis for this admission?: Yes Plan: Patient has severe COVID-19 infection with severe hypoxia. ABG shows PO2 of 57 mmHg on 80% FiO2 HF NC. Attempted to put on patient but he was unable to tolerate it for long. I have encouraged him to reattempt to do this himself as this will help with lung recruitment. In the meantime we will continue with high flow nasal cannula currently FiO2 100% at this time. Continue dexamethasone. Hopeful that Remdesivir can have some effect. (3) Diarrhea Qualifiers: Diarrhea type: infectious Qualified Code(s): A09 - Infectious gastroenteri tis and colitis, unspecified Is this a current diagnosis for this admission?: Yes Plan: Likely secondary to viral gastroenteritis from COVID-19. Will monitor closely. Still having several bouts of diarrhea. Will check C. difficile as well and if negative will start on Imodium. IV fluid hydration to avoid dehydration. (4) New onset type 2 diabetes mellitus Is this a current diagnosis for this admission?: Yes Plan: Random blood sugar over 200 and hemoglobin A1c of 7.1. I have started patient on metformin. Accu-Cheks and sliding scale. Diabetes education. Dietitian consulted. (5) Hyponatremia Is this a current diagnosis for this admission?: Yes Plan: Likely secondary to hypovolemia from dehydration from diarrhea. Improved on BMP following IV fluids administration. (6) Transaminitis Is this a current diagnosis for this admission?: Yes Plan: Likely secondary to prior infection. Will monitor CMP. (7) DVT prophylaxis Is this a current diagnosis for this admission?: Yes Plan: Given high risk of VTE with COVID patient's on regular prophylactic dose, I have placed patient on half therapeutic dose of Lovenox. - Time Time Spent with patient: 15-24 minutes Anticipated discharge: Home Within: Other - too severe to determine at this point
[2020-01-03] MEDS: REMDESIVIR (EUA) 100 MG in NORMAL SALINE 250 ML IV SCH (21:46)
[2020-01-03] MEDS ORDERED: MELATONIN 3 MG TABLET PO PRN (22:41)
[2020-01-04] MEDS: AZITHROMYCIN 250 MG in DEXTROSE 5%-WATER 250 ML IV SCH (00:38)
[2020-01-04] MEDS: ALBUTEROL SULFATE HFA (90 MCG/PUFF) 200 PUFF/8.5 GM MDI IH SCH ×4 (00:38→20:38)
[2020-01-04] MEDS ORDERED: LORAZEPAM INJ 2 MG/1 ML VIAL IV PRN (01:10)
[2020-01-04] MEDS ORDERED: LORAZEPAM INJ 2 MG/1 ML VIAL ONE (01:11)
[2020-01-04] MEDS: POTASSI CL 20 MEQ/NS 1L 1000 ML IV PRN (04:21)
[2020-01-04] MEDS: DEXAMETHASONE SOD PHOSPHATE INJ 4 MG/1 ML VIAL IV SCH ×3 (05:35→21:33)
[2020-01-04 07:07] LABS: ALBUMIN 3.4 g/dL (3.5-5.0); ALKALINE PHOSPHATASE 99 U/L (38-126); ANION GAP 9 (5-19); ASPARTATE AMINO TRANSFERASE 108 U/L (17-59); BILIRUBIN,DIRECT 0.1 mg/dL (0.0-0.4); BILIRUBIN,TOTAL 0.7 mg/dL (0.2-1.3); BLOOD UREA NITROGEN 15 mg/dL (7-20); CALCIUM 8.5 mg/dL (8.4-10.2); CARBON DIOXIDE 28 mmol/L (22-30); CHLORIDE 100 mmol/L (98-107); GLUCOSE 179 mg/dL (75-110); PHOSPHORUS 3.2 mg/dL (2.5-4.5); POTASSIUM 4.9 mmol/L (3.6-5.0); TOTAL PROTEIN 6.5 g/dL (6.3-8.2)
[2020-01-04] MEDS: INSULIN LISPRO 100 UNIT/ML 3 ML VIAL SUBCUT SCH ×4 (08:08→21:31)
[2020-01-04 08:18] LABS: ARTERIAL BLOOD BASE EXCESS 0.7 mmol/L; ARTERIAL BLOOD H2CO3 1.14 mmol/L (1.05-1.35); ARTERIAL BLOOD HCO3 24.7 mmol/L (20-24); ARTERIAL BLOOD O2 SATURATION 87.3 % (94-98); ARTERIAL BLOOD PCO2 37.8 mmHg (35-45); ARTERIAL BLOOD PH 7.43 (7.35-7.45); ARTERIAL BLOOD PO2 50.9 mmHg (80-100); ARTERIAL BLOOD TOTAL CO2 25.9 mmol/L (23-27)
[2020-01-04 08:19] LABS: ARTERIAL BLOOD FIO2 100%
[2020-01-04] MEDS: METFORMIN HCL 500 MG TABLET PO SCH ×2 (08:23→10:00)
[2020-01-04] MEDS: ASCORBIC ACID 500 MG TABLET PO SCH ×2 (10:00→21:44)
[2020-01-04] MEDS: ENOXAPARIN SODIUM INJ 40 MG/0.4 ML DISP.SYRIN SUBCUT SCH ×2 (10:00→21:36)
[2020-01-04] MEDS: CHOLECALCIFEROL (D3) 1,000 UNIT (25 MCG) TABLET PO SCH (10:00)
[2020-01-04] MEDS: ZINC SULFATE 220 MG CAPSULE PO SCH (10:00)
[2020-01-04] MEDS: GUAIFENESIN 600 MG TABLET.SA PO SCH (10:00)
--- NOTE | 2020-01-04 10:05 | PDOC CRITICAL CARE PROG REPORT ---
General Date:: 01/04/20 Hospital Day:: 4 Resuscitation Status: Full Code Events in the past 12 to 24 Hours:: This 44-year-old male non-smoker is seen in consultation at the request of Dr. Sudarshan Ho for recommendations on further evaluation and management of respiratory distress. The patient has been admitted with COVID-19 pneumonia. At the time of clinical interview, he is on BiPAP 20/10, FiO2 100%. Case was discussed with the nurse and respiratory therapist and Dr. Ho. Patient reports that he initially presented to the hospital 5 days ago with myalgias. He was discharged from the emergency department. He returned with increased respiratory distress and has been admitted with COVID-19 (confirmed) pneumonia. We are called to see this patient because he is tachypneic with a respiratory rate in the 40s and is requiring an invasive positive pressure ventilatory support. At this point, the patient has already been treated with remdesivir. He is on Decadron. He is also on azithromycin zinc sulfate and vitamin C. He does report dyspnea and dry cough. He continues to have myalgias. Endorses nausea, diarrhea. No vomiting. He is afebrile. PAST MEDICAL HISTORY: Appendicitis. He denies hypertension, diabetes, hyperlipidemia, renal disease or liver disease. He has no history of coronary artery disease, myocardial infarction or stroke. PAST SURGICAL HISTORY: Appendectomy SOCIAL HISTORY: Tobacco: Denies. Alcohol: Denies. Illicit drugs: Denies. Occupational: Works in a grocery store. FAMILY HISTORY: Hypertension Type 2 diabetes mellitus ALLERGIES: No known drug allergies. HOME MEDICATIONS: Flexeril 10 mg p.o. 3 times daily [place] 5/325 1 tablet p.o. every 4 hours PRN. REVIEW OF SYSTEMS: Constitutional: Chills, fever, fatigue HEENT: Denies headaches. Denies ringing in the ears. Some mild alteration in smell and taste. Respiratory: Dry cough, dyspnea. Denies sputum production. Cardiovascular: Denies palpitations, chest pain, lower extremity edema. Gastrointestinal: Nausea, diarrhea. Denies emesis. No abdominal pain. Genitourinary: No testicular pain. No dysuria. No foul odor. Musculoskeletal: Myalgias. Skin: No lesions, rash, purpura. Neurologic: Mild dizziness. Denies loss of consciousness. No seizures. Endocrine: No history of diabetes. Denies polyuria, polyphagia, polydipsia. Hematologic/lymphatic: No lymphadenopathy. No abnormal blood loss. No bruises. Review of systems relevant to events:: Respiratory: COVID-19 pneumonia, respiratory distress, dry cough Reason for ICU Addmission:: ICU transfer is not indicated at this time. - Medications: Medications reviewed and adjusted accordingly: No Physical Exam Vital Signs: Temp Pulse Resp BP Pulse Ox 98.1 F 95 48 H 126/73 H 91 L 01/04/20 07:20 01/04/20 07:20 01/04/20 07:20 01/04/20 07:20 01/04/20 07:20 Pulse Oximeter Continuous Start: 01/01/20 18:33 Freq: RTQ4 Status: Active Protocol: Document 01/04/20 04:35 [facility] (Rec: 01/04/20 04:51 [facility] [id number]) Pulse Oximetry Assessment Oxygen Saturation (92-100) 90 Oxygen Delivery Method Bi-pap Fraction of Inspired Oxygen (FIO2) 100 Equipment Usage Equipment in Use Continuous SpO2 Machine # 2 Intake & Output 01/03/20 01/04/20 01/05/20 06:59 06:59 06:59 Intake Total 1900 2860 384 Output Total 775 1550 Balance 1125 1310 384 Weight 101 kg 101.5 kg Weight/Height Weight 101.5 kg Height 1.65 m General appearance: PRESENT: no acute distress, well-developed, well-nourished Head exam: PRESENT: atraumatic, normocephalic Eye exam: PRESENT: conjunctiva pink, EOMI, PERRLA. ABSENT: scleral icterus Mouth exam: PRESENT: moist, tongue midline Neck exam: ABSENT: carotid bruit, JVD, lymphadenopathy, thyromegaly Respiratory exam: PRESENT: decreased breath sounds. ABSENT: rales, rhonchi, wheezes Cardiovascular exam: PRESENT: RRR. ABSENT: diastolic murmur, rubs, systolic murmur Pulses: PRESENT: normal dorsalis pedis pul Vascular exam: PRESENT: normal capillary refill GI/Abdominal exam: PRESENT: normal bowel sounds, soft. ABSENT: distended, guarding, mass, organolmegaly, rebound, tenderness Extremities exam: PRESENT: full ROM. ABSENT: calf tenderness, clubbing, pedal edema Neurological exam: PRESENT: alert, awake, oriented to person, oriented to place, oriented to time, oriented to situation, CN II-XII grossly intact. ABSENT: motor sensory deficit Psychiatric exam: PRESENT: appropriate affect, normal mood. ABSENT: agitated, anxious Skin exam: PRESENT: dry, intact, warm. ABSENT: cyanosis, rash Laboratory/Radiographs Laboratory Results: 01/03/20 04:36 01/04/20 06:30 01/04/20 01/04/20 06:30 07:55 Carbonic Acid 1.14 HCO3/H2CO3 Ratio 21:1 ABG pH 7.43 ABG pCO2 37.8 ABG pO2 50.9 L ABG HCO3 24.7 H ABG O2 Saturation 87.3 L ABG Base Excess 0.7 FiO2 100% Sodium 136.8 L Potassium 4.9 Chloride 100 Carbon Dioxide 28 Anion Gap 9 BUN 15 Creatinine 0.66 Est GFR ( Amer) > 60 Glucose 179 H Calcium 8.5 Phosphorus 3.2 Magnesium 2.3 Total Bilirubin 0.7 AST 108 H Alkaline Phosphatase 99 Total Protein 6.5 Albumin 3.4 L Impressions: Chest X-Ray 01/01/20 00:00 IMPRESSION: Increasing pneumonia is consistent with the the stated history. All labs, radiographs, diagnostic studies and EKGs were personally reviewed: Yes In addition, reports of radiographic and diagnostic studies were read: Yes Assessment and Plan - Diagnosis (1) Acute hypoxemic respiratory failure due to COVID-19 Is this a current diagnosis for this admission?: Yes Plan: * NIPPV was adjusted at the bedside to CPAP 10, FiO2 100%. Maintain FiO2 100%. Titrate CPAP pressure only, as needed to maintain SPO2 88+% (orders entered). * I strongly advise against the use of benzodiazepines or sedative medications to address tachypnea. Tachypnea demonstrated in COVID-19 patient's is a ph ysiologic response that should not be stifled. Low-dose opiates may be used (to alleviate pleuritic pain and has an added benefit of being antitussive) but should be dosed cautiously to avoid altered mental status. In order for morphine 1 mg IV every 4 hours as needed was entered. * As the patient has already been treated with REM does severe, I would not initiate treatment with hydroxychloroquine. The patient has been initiated on azithromycin. This should be stopped after a 5-day course (orders entered). * Continue dexamethasone. * Repeat d-dimer. * Check LDH, ferritin, interleukin-6 (orders entered). (2) Pneumonia due to COVID-19 virus Is this a current diagnosis for this admission?: Yes Plan: Chest x-ray shows bilateral pulmonary infiltrates consistent with typical COVID pneumonia. COVID-19 test (12/30) positive. Continue vitamin C, vitamin D, zinc supplements. Stop guaifenesin. Albuterol as needed. Add Pulmicort scheduled. Continue azithromycin day 08/21. Started on Remdesivir day 2 Dexamethasone day 08/26 Blood cultures growing what appears to be a contaminant. Repeat blood cultures. Antiemetics provided. (3) Steroid-induced diabetes Qualifiers: Encounter type: initial encounter Qualified Code(s): E09.9 - Drug or chemical induced diabetes mellitus without complications; T38.0X5A - Adverse effect of glucocorticoids and synthetic analogues, initial encounter Is this a current diagnosis for this admission?: Yes Plan: Stop metformin. Continue sliding scale insulin. (4) Diarrhea due to COVID-19 Is this a current diagnosis for this admission?: Yes Plan Summary: * This patient has acute hypoxemic respiratory failure due to severe COVID-19 pneumonia. As such, he is at risk of further clinical deterioration. * However, transfer to ICU is not indicated at this time. * Please see recommendations above. I do agree with the general direction of his care. * I have spoken with the patient about the importance of parents to prescribed therapy with CPAP. He voiced understanding. * I discussed the case with the respiratory therapist. Subsequent management was discussed with the nurse at the bedside. * We will see as needed. Please call if needed. Critical Time Critical Time (minutes): 45 Level of Care: IMCU -: 1. The care of a critical patient is a dynamic process. This note is a communications representative synopsis but static in nature. The timeframe for treatments given in order is not necessarily the actual time these treatments may have been done. 2. This patient requires critical care secondary to ongoing requirements for therapy not offered or safe outside the critical care environment. Transfer to a lower level of care will result in altered life or limb morbidity and mortality. 3. Multidisciplinary rounds completed. 4. ABCDE bundle addressed.
--- NOTE | 2020-01-04 11:00 | Progress Note ---
Provider Note Provider Note: Case discussed with Dr. Ho. He is not comfortable managing this patient in IMCU. Transfer to ICU.
--- NOTE | 2020-01-04 11:47 | Progress Note ---
Provider Note Provider Note: Overnight, patient became tachypneic into the 40s. Was subsequently changed from HFNC to BiPAP at 100% FiO2 overnight. This morning, patient remains tachypneic and hypoxic with spo2 at 89 to 90% and still remains tachypneic in the 40s. ABG shows pH 7.43, pO2 of 50 and pCO2 of 37, O2 sat of 87% on bipap fio2 100%. I have discussed case with underground bolting machine operator who has evaluated patient and adjusted settings to CPAP at 10 FiO2 100%. SPO2 still 89-91% and patient is still tachypneic in the mid to high 40s. On my assessment while patient was on BiPAP, patient is mentating well, does appear shortness of breath, not retracting but tachypneic, able to have conversation but not using long sentences. Discussed case with underground bolting machine operator. I feel patient is appropriate for ICU level of care at this point. Transfer order placed by underground bolting machine operator.
[2020-01-04 16:13] LABS: C DIFFICILE GDH NEGATIVE (NEGATIVE)
[2020-01-04] MEDS: FAMOTIDINE INJ/PF 20 MG/2 ML SDV IV SCH (16:28)
[2020-01-04] MEDS: BUDESONIDE NEB 0.25 MG/2 ML AMPUL NEB SCH (21:03)
[2020-01-04] MEDS: REMDESIVIR (EUA) 100 MG in NORMAL SALINE 250 ML IV SCH (23:04)
[2020-01-05] MEDS: AZITHROMYCIN 250 MG in DEXTROSE 5%-WATER 250 ML IV SCH (00:24)
[2020-01-05] MEDS: ALBUTEROL SULFATE HFA (90 MCG/PUFF) 200 PUFF/8.5 GM MDI IH SCH ×2 (00:25→05:42)
[2020-01-05 04:52] LABS: ANION GAP 9 (5-19); BLOOD UREA NITROGEN 18 mg/dL (7-20); CALCIUM 8.3 mg/dL (8.4-10.2); CARBON DIOXIDE 25 mmol/L (22-30); CHLORIDE 103 mmol/L (98-107); GLUCOSE 191 mg/dL (75-110); POTASSIUM 4.5 mmol/L (3.6-5.0)
[2020-01-05] MEDS: DEXAMETHASONE SOD PHOSPHATE INJ 4 MG/1 ML VIAL IV SCH ×3 (05:43→22:00)
[2020-01-05] MEDS: FAMOTIDINE INJ/PF 20 MG/2 ML SDV IV SCH ×2 (05:43→18:10)
[2020-01-05] MEDS: BUDESONIDE NEB 0.25 MG/2 ML AMPUL NEB SCH ×2 (08:39→20:04)
[2020-01-05] MEDS: ENOXAPARIN SODIUM INJ 40 MG/0.4 ML DISP.SYRIN SUBCUT SCH ×2 (09:32→22:02)
[2020-01-05] MEDS: INSULIN LISPRO 100 UNIT/ML 3 ML VIAL SUBCUT SCH ×4 (09:32→22:33)
[2020-01-05] MEDS: ZINC SULFATE 220 MG CAPSULE PO SCH (09:34)
[2020-01-05] MEDS: CHOLECALCIFEROL (D3) 1,000 UNIT (25 MCG) TABLET PO SCH (09:34)
[2020-01-05] MEDS: ASCORBIC ACID 500 MG TABLET PO SCH ×2 (09:34→22:00)
--- NOTE | 2020-01-05 18:46 | PDOC CRITICAL CARE PROG REPORT ---
General Date:: 01/05/20 ICU Day:: 2 Resuscitation Status: Full Code Events in the past 12 to 24 Hours:: 01/03: This 44-year-old male non-smoker admitted with COVID-19 pneumonia is seen in consultation at the request of Dr. Sudarshan Ho for recommendations on further evaluation and management of respiratory distress. Transferred to ICU because of staff was not comfortable with his CPAP dependent status on FiO2 100%. He is on REM does severe, Decadron, azithromycin, zinc sulfate and vitamin C. 01/04: He continues on CPAP 10, FiO2 100%. SPO2 94%. He is awake, alert and oriented. He texts and face times with his family from the hospital bed. He is able to take his CPAP mask off to eat a small snack, while on high flow nasal cannula. He denies pain. He denies headache. He denies nausea or vomiting. He does have episodes of dyspnea and paroxysmal coughing. No sputum production. Review of systems relevant to events:: Respiratory: COVID-19 pneumonia, respiratory distress, dry cough Reason for ICU Addmission:: ICU transfer is not indicated at this time. - Medications: Medications reviewed and adjusted accordingly: Yes Physical Exam Vital Signs: Temp Pulse Resp BP Pulse Ox 98.1 F 101 H 41 H 148/72 H 90 L 01/05/20 08:00 01/05/20 09:03 01/05/20 09:03 01/05/20 08:20 01/05/20 09:03 Pulse Oximeter Continuous Start: 01/01/20 18:33 Freq: RTQ4 Status: Complete Protocol: Document 01/04/20 04:35 DENISSE (Rec: 01/04/20 04:51 DENISSE [email or web address]) Pulse Oximetry Assessment Oxygen Saturation (92-100) 90 Oxygen Delivery Method Bi-pap Fraction of Inspired Oxygen (FIO2) 100 Equipment Usage Equipment in Use Continuous SpO2 Machine # 2 Intake & Output 01/04/20 01/05/20 01/06/20 06:59 06:59 06:59 Intake Total 2860 994 Output Total 1550 1125 150 Balance 1310 -131 -150 Weight 101.5 kg 100.6 kg Weight/Height Weight 100.6 kg Height 1.65 m General appearance: PRESENT: no acute distress, well-developed, well-nourished Head exam: PRESENT: atraumatic, normocephalic Eye exam: PRESENT: conjunctiva pink, EOMI, PERRLA. ABSENT: scleral icterus Mouth exam: PRESENT: moist, tongue midline Neck exam: ABSENT: carotid bruit, JVD, lymphadenopathy, thyromegaly Respiratory exam: PRESENT: crackles - In the bases, decreased breath sounds. ABSENT: rales, rhonchi, wheezes Cardiovascular exam: PRESENT: RRR. ABSENT: diastolic murmur, rubs, systolic murmur Pulses: PRESENT: normal dorsalis pedis pul GI/Abdominal exam: PRESENT: normal bowel sounds, soft. ABSENT: distended, guarding, mass, organolmegaly, rebound, tenderness Extremities exam: PRESENT: full ROM. ABSENT: calf tenderness, clubbing, pedal edema Musculoskeletal exam: PRESENT: ambulatory, normal inspection. ABSENT: deformity Neurological exam: PRESENT: alert, awake, oriented to person, oriented to place, oriented to time, oriented to situation, CN II-XII grossly intact. ABSENT: mo tor sensory deficit Psychiatric exam: PRESENT: appropriate affect. ABSENT: agitated, anxious Skin exam: PRESENT: dry, intact, warm. ABSENT: cyanosis, rash Laboratory/Radiographs Laboratory Results: 01/03/20 04:36 01/05/20 04:27 01/04/20 01/05/20 12:04 04:27 Sodium 136.5 L Potassium 4.5 Chloride 103 Carbon Dioxide 25 Anion Gap 9 BUN 18 Creatinine 0.63 Est GFR ( Amer) > 60 Glucose 191 H Calcium 8.3 L Phosphorus 3.0 Magnesium 2.2 Ferritin 1160.00 H Impressions: Chest X-Ray 01/01/20 00:00 IMPRESSION: Increasing pneumonia is consistent with the the stated history. All labs, radiographs, diagnostic studies and EKGs were personally reviewed: Yes In addition, reports of radiographic and diagnostic studies were read: Yes Assessment and Plan - Diagnosis (1) Acute hypoxemic respiratory failure due to COVID-19 Is this a current diagnosis for this admission?: Yes Plan: * Continue CPAP. Maintain FiO2 100%. Titrate CPAP pressure only, as needed to maintain SPO2 88+%. * Continue morphine 1 mg IV every 4 hours as needed. * As the patient has already been treated with remdesivir, I would not initiate treatment with hydroxychloroquine. The patient has been initiated on azithromycin. This should be stopped after a 5-day course. * Continue dexamethasone. (2) Pneumonia due to COVID-19 virus Is this a current diagnosis for this admission?: Yes Plan: Chest x-ray in a.m. COVID-19 test (12/30) positive. Continue vitamin C, vitamin D, zinc supplements. Albuterol as needed. Pulmicort scheduled. Continue azithromycin, Remdesivir. Dexamethasone day 08/26 Blood cultures growing what appears to be a contaminant. Repeat blood cultures. (3) Steroid-induced diabetes Qualifiers: Encounter type: initial encounter Qualified Code(s): E09.9 - Drug or chemical induced diabetes mellitus without complications; T38.0X5A - Adverse effect of glucocorticoids and synthetic analogues, initial encounter Is this a current diagnosis for this admission?: Yes Plan: Stop metformin. Continue sliding scale insulin. (4) Diarrhea due to COVID-19 Is this a current diagnosis for this admission?: Yes Critical Time Critical Time (minutes): 30 Level of Care: ICU -: 1. The care of a critical patient is a dynamic process. This note is a rental representative synopsis but static in nature. The timeframe for treatments giv en in order is not necessarily the actual time these treatments may have been done. 2. This patient requires critical care secondary to ongoing requirements for therapy not offered or safe outside the critical care environment. Transfer to a lower level of care will result in altered life or limb morbidity and mortality. 3. Multidisciplinary rounds completed. 4. ABCDE bundle addressed.
[2020-01-05] MEDS: MORPHINE SULFATE 10 MG/ML INJ IV PRN (20:10)
[2020-01-05] MEDS ORDERED: MORPHINE SULFATE 10 MG/ML INJ ONE (21:34)
[2020-01-05] MEDS ORDERED: MORPHINE SULFATE 10 MG/ML INJ IV ONE (22:00)
[2020-01-05] MEDS: REMDESIVIR (EUA) 100 MG in NORMAL SALINE 250 ML IV SCH (22:02)
[2020-01-06] MEDS: AZITHROMYCIN 250 MG in DEXTROSE 5%-WATER 250 ML IV SCH (00:35)
[2020-01-06] MEDS: MORPHINE SULFATE 10 MG/ML INJ IV PRN ×3 (01:20→06:00)
[2020-01-06 03:01] LABS: ARTERIAL BLOOD BASE EXCESS -2.4 mmol/L; ARTERIAL BLOOD FIO2 100%; ARTERIAL BLOOD H2CO3 1.29 mmol/L (1.05-1.35); ARTERIAL BLOOD HCO3 23.2 mmol/L (20-24); ARTERIAL BLOOD O2 SATURATION 79.7 % (94-98); ARTERIAL BLOOD PH 7.35 (7.35-7.45); ARTERIAL BLOOD PO2 45.9 mmHg (80-100); ARTERIAL BLOOD TOTAL CO2 24.5 mmol/L (23-27)
[2020-01-06] MEDS ORDERED: SUCCINYLCHOLINE CHLORIDE INJ 200 MG/10 ML VIAL ONE (05:00)
[2020-01-06 05:09] LABS: HEMATOCRIT 46.8 % (37.9-51.0); HEMOGLOBIN 15.8 g/dL (13.5-17.0); MEAN CORPUSCULAR HEMOGLOBIN 28.9 pg (27.0-33.4); MEAN CORPUSCULAR HGB CONC 33.8 g/dL (32.0-36.0); MEAN CORPUSCULAR VOLUME 86 fl (80-97); PLATELET COUNT 358 10^3/uL (150-450); RED BLOOD COUNT 5.46 10^6/uL (4.35-5.55); WHITE BLOOD COUNT 23.7 10^3/uL (4.0-10.5)
[2020-01-06 05:32] LABS: ABSOLUTE LYMPHOCYTES# (MANUAL) 0.5 10^3/uL (0.5-4.7); ABSOLUTE MONOCYTES # (MANUAL) 1.7 10^3/uL (0.1-1.4); BAND NEUTROPHILS % (MANUAL) 2 % (3-5); BASOPHILS % (MANUAL) 0 % (0-2); EOSINOPHILS % (MANUAL) 0 % (0-6); LYMPHOCYTES % (MANUAL) 2 % (13-45); MONOCYTES % (MANUAL) 7 % (3-13); SEGMENTED NEUTROPHILS % (MAN) 89 % (42-78); TOTAL CELLS COUNTED 100
[2020-01-06 05:33] LABS: PLATELET COMMENT ADEQUATE; RBC MORPHOLOGY COMMENT NORMO-CYTIC/CHROMIC
[2020-01-06 05:34] LABS: ALBUMIN 3.2 g/dL (3.5-5.0); ALKALINE PHOSPHATASE 123 U/L (38-126); ANION GAP 10 (5-19); ASPARTATE AMINO TRANSFERASE 80 U/L (17-59); BILIRUBIN,DIRECT 0.7 mg/dL (0.0-0.4); BILIRUBIN,TOTAL 1.5 mg/dL (0.2-1.3); BLOOD UREA NITROGEN 16 mg/dL (7-20); CALCIUM 8.4 mg/dL (8.4-10.2); CARBON DIOXIDE 27 mmol/L (22-30); CHLORIDE 98 mmol/L (98-107); GLUCOSE 187 mg/dL (75-110); PHOSPHORUS 3.4 mg/dL (2.5-4.5); POTASSIUM 4.7 mmol/L (3.6-5.0); TOTAL PROTEIN 6.3 g/dL (6.3-8.2)
[2020-01-06 05:41] LABS: PREALBUMIN 7.3 mg/dL (17.6-36.0)
[2020-01-06] MEDS ORDERED: ACETAMINOPHEN 1,000 MG/100 ML RTUPB IV ONE (06:15)
[2020-01-06] MEDS: FAMOTIDINE INJ/PF 20 MG/2 ML SDV IV SCH (06:30)
[2020-01-06] MEDS: DEXAMETHASONE SOD PHOSPHATE INJ 4 MG/1 ML VIAL IV SCH (06:30)
[2020-01-06] MEDS ORDERED: ETOMIDATE INJ/PF 20 MG/10 ML SDV IV ONE ×2 (06:41→08:30)
[2020-01-06] MEDS ORDERED: SUCCINYLCHOLINE CHLORIDE INJ 200 MG/10 ML VIAL IV ONE ×3 (07:02→08:30)
[2020-01-06] MEDS ORDERED: PROPOFOL 1,000 MG/100 ML INFUS..BTL IV ONE (07:10)
[2020-01-06 07:17] LABS: ARTERIAL BLOOD BASE EXCESS -8.2 mmol/L; ARTERIAL BLOOD H2CO3 2.04 mmol/L (1.05-1.35); ARTERIAL BLOOD HCO3 22.3 mmol/L (20-24); ARTERIAL BLOOD O2 SATURATION 22.9 % (94-98); ARTERIAL BLOOD PCO2 67.8 mmHg (35-45); ARTERIAL BLOOD TOTAL CO2 24.3 mmol/L (23-27)
[2020-01-06 07:19] LABS: ARTERIAL BLOOD FIO2 100%; ARTERIAL BLOOD PH 7.13 (7.35-7.45); ARTERIAL BLOOD PO2 21.3 mmHg (80-100)
[2020-01-06] MEDS ORDERED: DEXMEDETOMIDINE IN 0.9 % NACL 400 MCG/100 ML RTUPB IV ONE (07:26)
[2020-01-06] MEDS ORDERED: PROPOFOL 1,000 MG/100 ML INFUS..BTL IV PRN (07:32)
[2020-01-06] MEDS ORDERED: SODIUM BICARBONATE 8.4% INJ 50 MEQ/50 ML DISP.SYRIN ONE ×4 (07:37→08:22)
[2020-01-06] MEDS ORDERED: EPINEPHRINE INJ/PF 1 MG/1 ML AMPULE ONE (07:54)
[2020-01-06] MEDS ORDERED: EPINEPHRINE INJ 1 MG/10 ML DISP.SYRIN ONE ×5 (07:55→08:43)
[2020-01-06] MEDS ORDERED: CALCIUM GLUCONATE 1000 MG/10 ML INJ IV ONE (08:00)
--- NOTE | 2020-01-06 08:18 | RADIOLOGY REPORT (SQ) ---
EXAM DESCRIPTION: CHEST SINGLE VIEW IMAGES COMPLETED DATE/TIME: 01/06/2020 5:45 am REASON FOR STUDY: ETT tube COMPARISON: 01/01/2020 EXAM PARAMETERS: NUMBER OF VIEWS: One view. TECHNIQUE: Single frontal radiographic view of the chest acquired. RADIATION DOSE: NA LIMITATIONS: None. FINDINGS: LUNGS AND PLEURA: Airspace disease continues to improve. Mild persistent right perihilar, left perihilar and basilar airspace disease. No definite effusions or pneumothorax. MEDIASTINUM AND HILAR STRUCTURES: No masses. Contour normal. HEART AND VASCULAR STRUCTURES: Heart normal in size. Normal vasculature. BONES: No acute findings. HARDWARE: None in the chest. OTHER: No other significant finding. IMPRESSION: Improving aeration bilaterally. Persistent perihilar and left basilar infiltrate. TECHNICAL DOCUMENTATION: JOB ID: [id number] 2010 [employer]- All Rights Reserved Reading location - IP/workstation name: [email or web address]
[2020-01-06 08:29] LABS: ARTERIAL BLOOD BASE EXCESS -14.4 mmol/L; ARTERIAL BLOOD H2CO3 4.75 mmol/L (1.05-1.35); ARTERIAL BLOOD O2 SATURATION 25.7 % (94-98); ARTERIAL BLOOD TOTAL CO2 28.8 mmol/L (23-27)
[2020-01-06 08:33] LABS: ARTERIAL BLOOD FIO2 100%; ARTERIAL BLOOD PCO2 157.9 mmHg (35-45); ARTERIAL BLOOD PO2 32.4 mmHg (80-100)
[2020-01-06 08:44] VITALS: BP 60/15
[2020-01-06] MEDS: ALBUTEROL SULFATE HFA (90 MCG/PUFF) 200 PUFF/8.5 GM MDI IH SCH (08:55)
--- NOTE | 2020-01-06 11:46 | Death Summary ---
Summary Date : 01/06/20 Time of :: 08:55 Autopsy: Yes Resuscitation Status: Full Code - Final Diagnosis (1) Acute hypoxemic respiratory failure due to COVID-19 Is this a current diagnosis for this admission?: Yes (2) DVT prophylaxis Is this a current diagnosis for this admission?: Yes (3) New onset type 2 diabetes mellitus Is this a current diagnosis for this admission?: Yes Hospital Course:: This patient began his final hospitalization on the medical floor with known COVID disease. He was brought to the ICU due to worsening hypoxoia. He seemed to stabilize but about 6:30 AM on January 05, he became more hypoxic with oxygen saturations in the 70-80s. He was intubated and his O2 saturations briefly rallied before he fairly suddenly went into a cardiac arrest. This was with a low blood pressure and at times PEA. ACLS protocol begun. He arrested multiple times and we were unable to adequately oxygenate him. A femoral A-line and central line were placed. The pO2 on ABG never got higher than 32. After multiple arrests and no ability to oxygenate the code was cancelled at 8:55 AM on January 06, 2020. at bedside.
--- NOTE | 2020-01-06 13:28 | Progress Note ---
Provider Note Provider Note: Patient intubated with #7.5 ETT and R femoral A-line placed sterilly.
== END 2020-01-06 08:55 | disposition left against medical advice (07) | DRG 177 ==
LOC: ER 15:53 → EH 18:27 → 3N 21:40 → ICU 01-04 14:09
PROVIDERS: ADMIT Internal Medicine; ATTEND Internal Medicine Critical Care Medicine
PROC: 5A09357 Assistance with Respiratory Ventilation, Less than 24 Consecutive Hours, Continuous Positive Airway Pressure (ICD-10-PCS; 2020-01-04)
PROC: 0BH17EZ Insertion of Endotracheal Airway into Trachea, Via Natural or Artificial Opening (ICD-10-PCS; principal; 2020-01-06)
PROC: 06HM33Z Insertion of Infusion Device into Right Femoral Vein, Percutaneous Approach (ICD-10-PCS; 2020-01-06)
DX: U07.1 COVID-19 (principal); J12.89 Other viral pneumonia; J96.01 Acute respiratory failure with hypoxia; E87.1 Hypo-osmolality and hyponatremia; A09 Infectious gastroenteritis and colitis, unspecified; E09.9 Drug or chemical induced diabetes mellitus without complications; T38.0X5A Adverse effect of glucocorticoids and synthetic analogues, initial encounter; Y92.239 Unspecified place in hospital as the place of occurrence of the external cause; R74.0 Nonspecific elevation of levels of transaminase and lactic acid dehydrogenase [LDH]; Z90.49 Acquired absence of other specified parts of digestive tract; Z83.3 Family history of diabetes mellitus; Z82.49 Family history of ischemic heart disease and other diseases of the circulatory system
CPT/HCPCS: 31500; 36415; 36620; 71045; 80048; 80053; 82728; 82803; 82962; 83036; 83520; 83605; 83615; 83735; 83880; 84100; 84134; 85025; 85379; 86140; 87040; 87070; 87077; 87186; 87205; 87324; 87449; 92950; 94640; 94660; 94762; 99291; J0131; J0171; J0330; J0456; J0610; J1100; J1650; J1815; J1885; J2270; J2704; J3480; J3490; J7050; J7060; S0028